=== PATIENT | female | born 1935 | race Caucasian/White ===

== ENCOUNTER 2018-08-28 10:52 | Inpatient (IN) | payer MEDICAID, MEDICARE ==
[~2018-08-28] VITALS: Ht 157.5 cm; Wt 61.2 kg
[2018-08-28 15:03] LABS: BASOPHILS % 0.7 % (0.0-2.0); EOSINOPHILS % 5.3 % (0.0-5.0); HEMATOCRIT. 39.1 % (36.0-48.0); HEMOGLOBIN. 12.9 g/dL (12.0-16.0); MEAN CORPUSCULAR VOLUME 84.7 fL (81.0-99.0); MEAN PLATELET VOLUME 9.5 fl (7.4-10.4); MONOCYTES % 7.4 % (2.0-8.0); NEUTROPHILS % 52.6 % (40.0-76.0); PLATELET 197 x1000/uL (130-400); RED BLOOD CELL COUNT 4.62 mill/uL (4.2-5.4); RED CELL DISTRIBUTION WIDTH 15.3 % (11.6-14.6)
[2018-08-28 15:08] LABS: CHLORIDE 109 mEq/L (98-107)
[2018-08-28 15:11] LABS: PARTIAL THROMBOPLASTIN TIME 26.1 sec (23.4-31.0); PROTHROMBIN TIME 10.7 sec (9.6-11.0)
[2018-08-28] MEDS ORDERED: IOHEXOL-350 100 ML BOTTLE ONE (17:18)
[2018-08-28 17:37] LABS: CLARITY URINE CLEAR (CLEAR); COLOR URINE YELLOW (YELLOW); KETONES URINE NEGATIVE (NEGATIVE); LEUKOCYTE ESTERASE URINE NEGATIVE (NEGATIVE); NITRITE URINE NEGATIVE (NEGATIVE); OCCULT BLOOD URINE NEGATIVE (NEGATIVE); PH URINE 5.5 (4.5-8.0); PROTEIN URINE NEGATIVE (NEGATIVE); SPECIFIC GRAVITY URINE 1.055 (1.005-1.030); UROBILINOGEN URINE 0.2 E.U./dL (0.2-1.0)
[2018-08-28] MEDS ORDERED: METO-396 PO (20:05)
[2018-08-28] MEDS ORDERED: LOSA100T14 PO (20:06)
[2018-08-28] MEDS ORDERED: ASPI-1159 PO (20:07)
[2018-08-28] MEDS ORDERED: CLOP75TA33 PO (20:07)
[2018-08-28] MEDS ORDERED: ATOR-2 PO (20:08)
[2018-08-28] MEDS ORDERED: CLONIDINE 0.2MG TABLET PO PRN (21:00)
[2018-08-29] VITALS (7 sets, daily range): BP systolic 116–162; BP diastolic 53–78
[2018-08-29] MEDS ORDERED: METF-816 PO (00:38)
[2018-08-29] MEDS ORDERED: EMPA25TA PO (00:38)
[2018-08-29] MEDS ORDERED: DEXTROSE 50% WATER 50ML SYRINGE IV PRN (01:15)
[2018-08-29] MEDS ORDERED: MORPHINE SULFATE 4 MG/ML CPJ (NOT FOR IM USE) IV PRN (01:15)
[2018-08-29] MEDS: ENOXAPARIN 60MG/0.6ML SYR SUBCUT SCH ×2 (02:36→18:09)
[2018-08-29] MEDS: BLOOD SUGAR DIAGNOSTIC STRIP TEST SCH ×4 (06:40→21:00)
[2018-08-29] MEDS: INSULIN LISPRO 100 UNITS/ML SUBCUT SCH ×4 (08:56→22:14)
[2018-08-29] MEDS: ASPIRIN 81MG TABLET PO SCH (08:58)
[2018-08-29] MEDS: AMLODIPINE 10MG TABLET PO SCH (08:58)
[2018-08-29] MEDS: METOPROLOL TARTRATE 25MG TABLET PO SCH ×2 (08:59→22:09)
[2018-08-29] MEDS ORDERED: MEDICATION NOT ON FORMULARY EA (Metoprolol Succinate 25 MG) PO SCH (09:00)
[2018-08-29] MEDS: CLOPIDOGREL 75MG TABLET PO SCH (13:07)
[2018-08-29] MEDS ORDERED: ACETAMINOPHEN 325MG TABLET PO PRN (15:30)
[2018-08-29] MEDS ORDERED: ONDANSETRON HCL 4MG/2ML INJ IV PRN (15:30)
[2018-08-29] MEDS: ATORVASTATIN CALCIUM 40MG TABLET PO SCH (22:08)
[2018-08-30] VITALS: BP 137/55
[2018-08-30] MEDS: ENOXAPARIN 60MG/0.6ML SYR SUBCUT SCH ×2 (02:00→13:24)
[2018-08-30 04:00] VITALS: BP 151/61
[2018-08-30] MEDS: BLOOD SUGAR DIAGNOSTIC STRIP TEST SCH ×4 (06:41→21:51)
[2018-08-30 06:47] LABS: CHLORIDE 106 mEq/L (98-107)
[2018-08-30 06:52] LABS: BASOPHILS % 0.6 % (0.0-2.0); EOSINOPHILS % 5.7 % (0.0-5.0); HEMATOCRIT. 38.6 % (36.0-48.0); HEMOGLOBIN. 12.9 g/dL (12.0-16.0); LYMPHOCYTES % 33.5 % (20.0-50.0); MEAN CORPUSCULAR HEMOGLOBIN 28.1 pg (28.0-32.0); MEAN CORPUSCULAR VOLUME 83.9 fL (81.0-99.0); MEAN PLATELET VOLUME 9.4 fl (7.4-10.4); MONOCYTES % 8.1 % (2.0-8.0); NEUTROPHILS % 52.1 % (40.0-76.0); PLATELET 217 x1000/uL (130-400); RED CELL DISTRIBUTION WIDTH 14.6 % (11.6-14.6)
[2018-08-30 08:00] VITALS: BP_SYST 145; BP_SYST 163; BP_DIAS 57; BP_DIAS 92
[2018-08-30] MEDS: INSULIN LISPRO 100 UNITS/ML SUBCUT SCH ×4 (08:10→22:01)
[2018-08-30] MEDS: AMLODIPINE 10MG TABLET PO SCH (08:37)
[2018-08-30] MEDS: METOPROLOL TARTRATE 25MG TABLET PO SCH ×2 (08:37→21:51)
[2018-08-30] MEDS: ASPIRIN 81MG TABLET PO SCH (09:58)
[2018-08-30] MEDS: CLOPIDOGREL 75MG TABLET PO SCH (09:58)
[2018-08-30 11:59] VITALS: BP 151/75
[2018-08-30 16:00] VITALS: BP 144/61
[2018-08-30 20:00] VITALS: BP 129/60
[2018-08-30] MEDS: ATORVASTATIN CALCIUM 40MG TABLET PO SCH (21:50)
[2018-08-31] VITALS (19 sets, daily range): BP systolic 96–159; BP diastolic 52–89
[2018-08-31] MEDS: ENOXAPARIN 60MG/0.6ML SYR SUBCUT SCH ×2 (02:00→14:00)
[2018-08-31] MEDS: BLOOD SUGAR DIAGNOSTIC STRIP TEST SCH ×4 (06:01→20:29)
[2018-08-31 06:05] LABS: BASOPHILS % 0.6 % (0.0-2.0); EOSINOPHILS % 4.6 % (0.0-5.0); LYMPHOCYTES % 30.5 % (20.0-50.0); MEAN CORPUSCULAR HEMOGLOBIN 28.1 pg (28.0-32.0); MEAN CORPUSCULAR VOLUME 84.4 fL (81.0-99.0); MEAN PLATELET VOLUME 9.1 fl (7.4-10.4); MONOCYTES % 8.2 % (2.0-8.0); NEUTROPHILS % 56.1 % (40.0-76.0); PLATELET 210 x1000/uL (130-400); RED BLOOD CELL COUNT 4.62 mill/uL (4.2-5.4); RED CELL DISTRIBUTION WIDTH 14.5 % (11.6-14.6)
[2018-08-31 06:21] LABS: CHLORIDE 108 mEq/L (98-107)
[2018-08-31] MEDS: INSULIN LISPRO 100 UNITS/ML SUBCUT SCH ×4 (08:10→20:45)
[2018-08-31] MEDS: AMLODIPINE 10MG TABLET PO SCH (08:13)
[2018-08-31] MEDS: METOPROLOL TARTRATE 25MG TABLET PO SCH ×2 (08:14→20:46)
[2018-08-31] MEDS: ASPIRIN 81MG TABLET PO SCH (08:15)
[2018-08-31] MEDS: CLOPIDOGREL 75MG TABLET PO SCH (08:15)
[2018-08-31] MEDS ORDERED: IODIXANOL 320MG/ML 100 ML BOTTLE IV ONE (12:08)
[2018-08-31] MEDS ORDERED: LIDOCAINE HCL 1% 20ML VIAL (Pyxis) INJ ONE (12:08)
[2018-08-31] MEDS ORDERED: MIDAZOLAM HCL 2 MG/2 ML VIAL ONE (13:16)
[2018-08-31] MEDS ORDERED: FENTANYL CITRATE/PF 50MCG/ML 2ML VIAL ONE (13:18)
[2018-08-31] MEDS ORDERED: IOHEXOL-300 100 ML BOTTLE ONE (13:30)
[2018-08-31] MEDS: ATORVASTATIN CALCIUM 40MG TABLET PO SCH (20:46)
[2018-09-01] VITALS (8 sets, daily range): BP systolic 107–141; BP diastolic 56–93
[2018-09-01] MEDS: ENOXAPARIN 60MG/0.6ML SYR SUBCUT SCH (01:35)
[2018-09-01] MEDS: BLOOD SUGAR DIAGNOSTIC STRIP TEST SCH ×2 (05:58→11:34)
[2018-09-01 06:25] LABS: BASOPHILS % 0.4 % (0.0-2.0); EOSINOPHILS % 1.5 % (0.0-5.0); HEMATOCRIT. 39.4 % (36.0-48.0); LYMPHOCYTES % 25.1 % (20.0-50.0); MEAN CORPUSCULAR HEMOGLOBIN 27.8 pg (28.0-32.0); MEAN CORPUSCULAR VOLUME 84.2 fL (81.0-99.0); MEAN PLATELET VOLUME 9.3 fl (7.4-10.4); MONOCYTES % 6.6 % (2.0-8.0); NEUTROPHILS % 66.4 % (40.0-76.0); PLATELET 223 x1000/uL (130-400); RED BLOOD CELL COUNT 4.68 mill/uL (4.2-5.4); RED CELL DISTRIBUTION WIDTH 14.8 % (11.6-14.6)
[2018-09-01 06:47] LABS: CHLORIDE 107 mEq/L (98-107)
[2018-09-01] MEDS: AMLODIPINE 10MG TABLET PO SCH (08:09)
[2018-09-01] MEDS: CLOPIDOGREL 75MG TABLET PO SCH (08:09)
[2018-09-01] MEDS: METOPROLOL TARTRATE 25MG TABLET PO SCH (08:10)
[2018-09-01] MEDS: ASPIRIN 81MG TABLET PO SCH (08:11)
[2018-09-01] MEDS: INSULIN LISPRO 100 UNITS/ML SUBCUT SCH ×2 (08:15→12:51)
== END 2018-09-01 13:00 | disposition home or self-care (01) | DRG 181 ==
LOC: ER 10:52 → 7WST 17:36 → EDBEDREQ 17:41 → ENRESERV 21:30 → 3WST 08-31 16:24
PROVIDERS: ADMIT Internal Medicine; ATTEND Internal Medicine
PROC: 047M3ZZ Dilation of Right Popliteal Artery, Percutaneous Approach (ICD-10-PCS; principal; 2018-08-31)
PROC: B41F1ZZ Fluoroscopy of Right Lower Extremity Arteries using Low Osmolar Contrast (ICD-10-PCS; 2018-08-31)
DX: E11.51 Type 2 diabetes mellitus with diabetic peripheral angiopathy without gangrene (principal); E87.8 Other disorders of electrolyte and fluid balance, not elsewhere classified; I25.10 Atherosclerotic heart disease of native coronary artery without angina pectoris; E78.00 Pure hypercholesterolemia, unspecified; E78.5 Hyperlipidemia, unspecified; I10 Essential (primary) hypertension; I70.201 Unspecified atherosclerosis of native arteries of extremities, right leg; Z95.820 Peripheral vascular angioplasty status with implants and grafts
CPT/HCPCS: 36246; 36415; 37224; 71045; 75635; 75710; 80048; 82962; 83036; 85347; 99285; C1725; C1760; C1769; C1887; C1893; C1894; J1644; J1650; J1815; J2250; J3010; J3490; Q9967

== ENCOUNTER 2023-08-09 15:49 | Emergency (ER) | payer MEDICARE, MEDICAID ==
[~2023-08-09] VITALS: Ht 162.6 cm; Wt 63.0 kg
[~2023-08-09 15:49] MED LIST: ASPI-1497 PO; ATOR-2 PO; CLOP75TA33 PO; EMPA25TA PO; LOSA100T33 PO; METF-874 PO; METO-396 PO
[2023-08-09 15:51] VITALS: O2SAT 97
[2023-08-09 16:49] LABS: BASOPHILS % 0.6 % (0.0-2.0); EOSINOPHILS % 4.5 % (0.0-5.0); HEMATOCRIT. 33.8 % (36.0-48.0); HEMOGLOBIN. 11.1 g/dL (12.0-16.0); LYMPHOCYTES % 27.5 % (20.0-50.0); MEAN CORPUSCULAR HEMOGLOBIN 27.8 pg (28.0-32.0); MEAN CORPUSCULAR HGB CONC 32.9 g/dL (31.0-37.0); MEAN CORPUSCULAR VOLUME 84.6 fL (81.0-99.0); MEAN PLATELET VOLUME 9.6 fl (7.4-10.4); NEUTROPHILS % 58.4 % (40.0-76.0); PLATELET 168 x1000/uL (130-400); RED CELL DISTRIBUTION WIDTH 15.4 % (11.6-14.6); WHITE BLOOD COUNT 6.4 x1000/uL (4.5-11.0)
[2023-08-09 17:38] LABS: ALANINE AMINOTRANSFERASE 13 IU/L (10-49); ASPARTATE AMINOTRANSFERASE 19 IU/L (<34); BILIRUBIN TOTAL 0.2 mg/dL (0.1-1.0); CALCIUM 8.9 mg/dL (8.7-10.4); CARBON DIOXIDE 27 mEq/L (21-32); CHLORIDE 100 mEq/L (98-107); CREATININE 1.3 mg/dL (0.6-1.0); GLUCOSE 372 mg/dL (70-105); POTASSIUM 4.7 mEq/L (3.5-5.1); PROTEIN TOTAL 7.4 g/dL (6.0-8.3); SODIUM 134 mEq/L (136-145); TROPONIN I HIGH SENSITIVITY 8 ng/L (3.0-34); UREA NITROGEN BLOOD 25 mg/dL (9-23)
[2023-08-09 17:56] LABS: BETA HYDROXYBUTYRATE 0.2 mMol/L (0.0-0.3)
[2023-08-09 18:48] LABS: CLARITY URINE CLEAR (CLEAR); COLOR URINE YELLOW (YELLOW); GLUCOSE URINE 3+ (NEGATIVE); KETONES URINE NEGATIVE (NEGATIVE); LEUKOCYTE ESTERASE URINE NEGATIVE (NEGATIVE); NITRITE URINE NEGATIVE (NEGATIVE); OCCULT BLOOD URINE NEGATIVE (NEGATIVE); PROTEIN URINE NEGATIVE (NEGATIVE); SPECIFIC GRAVITY URINE 1.016 (1.005-1.030); UROBILINOGEN URINE 0.2 E.U./dL (0.2-1.0)
[2023-08-09 19:42] LABS: BACTERIA URINE 1+; RBC URINE 0-2 /hpf (0-2); SQUAMOUS EPITHELIAL CELL URINE 1+ /lpf (RARE/1+); WBC URINE 0-2 /hpf (0-2)
[2023-08-09] MEDS ORDERED: POLY119P2 MT (19:42)
[2023-08-09] MEDS: SODIUM CHLORIDE 0.9% 500 ML IV ONE (20:24)
[2023-08-09] MEDS ORDERED: IOHEXOL-300 100 ML BOTTLE ONE (21:18)
[2023-08-09 22:20] VITALS: BP 134/68; PULSE 84; RESP 18; TEMP 98.6
== END 2023-08-09 22:36 ==
LOC: ER 15:49
DX: R10.32 Left lower quadrant pain (principal); K59.00 Constipation, unspecified; E11.9 Type 2 diabetes mellitus without complications; E78.00 Pure hypercholesterolemia, unspecified; I11.0 Hypertensive heart disease with heart failure; I50.9 Heart failure, unspecified; Z79.899 Other long term (current) drug therapy
CPT/HCPCS: 99285; 74177; 96360; 71045; 96361; 80053; 81003; 82010; 82962; 85025; 85610; 84484; 36415; 93005; Q9967; J7040